=== PATIENT | male | born 1990 ===

== ENCOUNTER → 2024-09-28 | Outpatient (CLI) | payer BC ==
[2024-09-28 15:05] LABS: BASOPHILS ABSOLUTE AUTO 0.02 K/mm3 (0.00-0.23); BASOPHILS PERCENT AUTO 0 % (0-2); EOSINOPHILS ABSOLUTE AUTO 0.03 K/mm3 (0.00-0.68); EOSINOPHILS PERCENT AUTO 0 % (0-6); Hematocrit 43.8 % (37.0-53.0); Hemoglobin 14.5 g/dL (13.5-17.5); IMMATURE GRAN ABSOLUTE AUTO 0.02 K/mm3 (0.00-0.10); IMMATURE GRAN PERCENT AUTO 0 % (0-1); LYMPHOCYTES ABSOLUTE AUTO 1.83 K/mm3 (0.84-5.20); LYMPHOCYTES PERCENT AUTO 24 % (21-46); MONOCYTES ABSOLUTE AUTO 0.29 K/mm3 (0.16-1.47); MONOCYTES PERCENT AUTO 4 % (4-13); Mean Corpuscular HGB 29.2 pg (26.0-34.0); Mean Corpuscular HGB Conc 33.1 g/dL (31.5-36.5); Mean Corpuscular Volume 88 fL (80-100); Mean Platelet Volume 10.6 fL (9.1-12.4); NEUTROPHILS ABSOLUTE AUTO 5.49 K/mm3 (1.96-9.15); NEUTROPHILS PERCENT AUTO 71 % (41-73); Platelet Count 304 K/mm3 (150-400); RDW Coefficient Variation 11.9 % (11.7-14.2); RDW Standard Deviation 38.5 fL (35.1-46.3); Red Blood Cell Count 4.96 M/mm3 (4.30-5.90); White Blood Cell Count 7.68 K/mm3 (4.00-11.30)
[2024-09-28 15:42] LABS: Alanine Aminotransfer (ALT/SGP 26 U/L (12-78); Albumin, Blood 4.4 g/dL (3.4-5.0); Albumin/Globulin Ratio 1.2 (0.8-1.8); Alk Phos 72 U/L (50-136); Anion Gap 8 mmol/L (3-11); Aspartate Aminotrans (AST/SGOT 13 U/L (12-37); Bilirubin, Total 0.4 mg/dL (0.1-1.0); Blood Urea Nitrogen 20 mg/dL (8-24); Bun/Creatinine Ratio 22.5 (12.0-20.0); CHOL/HDL RATIO 3.5; CO2, Blood 28 mmol/L (21-32); Chloride, Blood 103 mmol/L (98-108); Cholesterol 149 mg/dL (50-200); Creatinine, Blood 0.89 mg/dL (0.60-1.20); Globulin, Blood 3.6 g/dL (2.2-4.0); Glomerular Filtration Rate 115 (60-); Glucose, Blood 98 mg/dL (70-99); HDL Cholesterol 42 mg/dL (>39); LDL/HDL RATIO 1.9; Low Density Lipoprotein Chol 78 mg/dL (0-110); Potassium, Blood 3.9 mmol/L (3.5-5.5); Sodium, Blood 135 mmol/L (136-145); Triglycerides 146 mg/dL (30-140); Very Low Density Lipoprot Chol 29 mg/dL (6-28)
[2024-09-28 16:00] LABS: Chlamydia Trachomatis Urine NOT DETECTED (NOT DETECT); Neisseria Gonorrhoea Urine NOT DETECTED (NOT DETECT)
[2024-09-29 20:36] LABS: HEPATITIS C AB CIA INTERP Negative (Negative); HEPATITIS C ANTIBODY CIA INDEX 0.11 IV
[2024-09-30 09:55] LABS: HIV 1,2 COMBO ANTIGEN/ANTIBODY Negative (Negative)
[2024-10-02 19:39] LABS: QUANTIFERON MITOGEN MINUS NIL >10.00 IU/mL; QUANTIFERON NIL 0.02 IU/mL; QUANTIFERON PLUS TB1 MINUS NIL 0.74 IU/mL (<=0.34)
== END | disposition home or self-care (01) ==
LOC: LAB 13:23 → LAB SHORT 13:23
PROVIDERS: General Practice
DX: Z11.3 Encounter for screening for infections with a predominantly sexual mode of transmission (principal); E66.811 Obesity, class 1; R04.2 Hemoptysis
CPT/HCPCS: 80053; 80061; 83036; 84443; 85025; 86480; 86592; 86803; 87389; 87491; 87591